=== PATIENT | female | born 2000 | race African-American/Black ===

== ENCOUNTER 2018-11-09 14:52 | Emergency (ER) | payer SELFPAY ==
[~2018-11-09] VITALS: Ht 160 cm; Wt 56.8 kg
[2018-11-09 15:04] VITALS: BP 125/78
== END 2018-11-09 17:36 | disposition left against medical advice (07) ==
LOC: ER 15:04
DX: R51 Headache (principal); Z53.21 Procedure and treatment not carried out due to patient leaving prior to being seen by health care provider